=== PATIENT | female | born 1965 | race Native Hawaiian/Other Pacific Islander ===

== ENCOUNTER 2019-10-05 11:47 | Emergency (ER) | payer MEDICARE, BC ==
[~2019-10-05] VITALS: Ht 162.5 cm; Wt 45.0 kg
[2019-10-05] MEDS ORDERED: cefTRIAXone 1,000 MG/2.86 ml vial (IM ONLY) ONE (12:15)
[2019-10-05] MEDS ORDERED: LIDOCAINE 1% INJ 20 ML 20 ML VIAL ONE (12:15)
--- NOTE | 2019-10-05 12:19 | ED EENT ---
History of Present Illness General Chief Complaint: Dental Problems/Pain Stated Complaint: DENTAL PAIN History of Present Illness Date Seen by Provider: Oct 05, 2019 Time Seen by Provider: 12:16 Initial Comments Patient is here following visit to the dentist where she had a dental abscess lanced and opened in the office she is given Ceftin and Tylenol 3 she is afraid about him in an allergy and the dentist evidently by her counseled her to come to the emergency room to receive an injection and to observe her for allergies. His multiple allergies that she related some including hives some other reactions as she is describing it to me she is washing her hands and face with alcohol swab and seems to several excessive compulsive sort activities at the same time. She talks about PTSD as well as anxiety. Allergies and Home Medications Allergies Coded Allergies: Penicillins (Unverified Adverse Reaction, Unknown, 10/05/19) Sulfa (Sulfonamide Antibiotics) (Unverified Adverse Reaction, Unknown, 10/05/19) azithromycin (Unverified Adverse Reaction, Unknown, 10/05/19) clarithromycin (Unverified Adverse Reaction, Unknown, 10/05/19) erythromycin base (Unverified Adverse Reaction, Unknown, 10/05/19) Patient Home Medication List Home Medication List Reviewed: Yes Review of Systems Review of Systems Constitutional: No chills, No fever Ears: Denies Dizziness, Denies Tinnitus Nose: denies epistaxis, denies purulent discharge Mouth: denies clots; pain, swelling Throat: denies swelling, denies hoarse, denies painful swallowing Respiratory: no symptoms reported Cardiovascular: no symptoms reported Skin: no symptoms reported Neurological: Anxiety; Denies Headache, Denies Numbness, Denies Paresthesia Past [id number] Hx Past Med/Social Hx: Reviewed Nursing Past Med/Soc Hx Patient Social History Recent Foreign Travel: No Physical Exam Vital Signs Vital Signs - First Documented 10/05/19 11:55 Temp 36.6 Pulse 104 Resp 16 B/P (MAP) 112/83 (93) Pulse Ox 96 O2 Delivery Room Air Height, Weight, BMI Height: '" Weight: lbs. oz. kg; BMI Method: General Appearance: WD/WN, mild distress Ears: bilateral ear TM normal Nose: normal inspection; No active bleeding, No discharge Mouth/Throat: mandibular swelling, maxillary swelling, pharynx swelling; No tonsillar swelling Neck: non-tender, normal inspection Cardiovascular: no murmur, tachycardia Respiratory: lungs clear Progress/Results/Core Measures Results/Orders My Orders Orders - MARGI SMITH JR, MD Lidocaine 1% Inj 20 Ml (Xylocaine 1% Inj (10/05/19 12:15) Ceftriaxone For Im Use (Rocephin For Im (10/05/19 12:15) Ceftriaxone For Im Use (Rocephin For Im (10/06/19 09:00) Lidocaine 1% Inj 20 Ml (Xylocaine 1% Inj (10/05/19 12:30) Medications Given in ED Current Medications Medications Dose Ordered Sig/Jabier Route Start Time Stop Time Status Last Admin Dose Admin Lidocaine HCl 2.1 ml ONCE ONCE INJ 10/05/19 12:30 10/05/19 12:31 DC 10/05/19 12:34 2.1 ML Vital Signs/I&O 10/05/19 11:55 Temp 36.6 Pulse 104 Resp 16 B/P (MAP) 112/83 (93) Pulse Ox 96 O2 Delivery Room Air Departure Impression Primary Impression: Dental abscess Disposition: 01 HOME, SELF-CARE Condition: Stable Departure-Patient Inst. Referrals: IAM WILLETT MD (PCP/Family) Primary Care Physician Patient Instructions: Tooth Abscess (DC) MARGI SMITH JR, MD Oct 05, 2019 12:19
[2019-10-05] MEDS ORDERED: LIDOCAINE 1% INJ 20 ML 20 ML VIAL INJ ONE (12:30)
[2019-10-05 13:05] VITALS: BP 142/85
[2019-10-06] MEDS ORDERED: cefTRIAXone 1,000 MG/2.86 ml vial (IM ONLY) IM SCH (09:00)
== END 2019-10-05 13:05 | disposition home or self-care (01) ==
LOC: ER FS 11:50
DX: K04.7 Periapical abscess without sinus (principal); Z88.0 Allergy status to penicillin; Z88.2 Allergy status to sulfonamides; Z88.1 Allergy status to other antibiotic agents
CPT/HCPCS: 96372; 99284